=== PATIENT | female | born 1950 | race Caucasian/White ===

== ENCOUNTER 2017-12-02 10:03 | Outpatient (CLI) | payer MEDICARE | END 2017-12-02 23:59 | disposition home or self-care (01) | LOC: RT 10:03 | PROVIDERS: ATTEND Internal Medicine Critical Care Medicine | DX: J44.9 Chronic obstructive pulmonary disease, unspecified (principal); Z87.891 Personal history of nicotine dependence | CPT/HCPCS: 94618 ==

== ENCOUNTER 2022-05-28 09:40 | Emergency (ER) | payer MEDICARE, BC ==
[~2022-05-28 09:40] MED LIST: ALBU18HF2 PO; ALPR-143 PO; ASPI-1265 NG; DRON2.5C18 PO; FAMO20TA8 PO; FLUT1BLS4 PO; LOSA50TA64 PO; MONT-40 PO; ONDA8TAB6 PO; TIOT4MIS3 PO
[2022-05-28] MEDS ORDERED: DOXY100C76 PO (18:31)
[2022-05-28] MEDS ORDERED: PRED10TA PO (18:31)
[2022-05-28] MEDS ORDERED: CEPH250T PO (18:31)
== END 2022-05-28 11:14 | disposition left against medical advice (07) ==
LOC: ER 09:41
DX: J44.9 Chronic obstructive pulmonary disease, unspecified (principal); Z53.21 Procedure and treatment not carried out due to patient leaving prior to being seen by health care provider

== ENCOUNTER 2022-05-28 12:39 | Emergency (ER) | payer MEDICARE, BC, OTHER ==
[~2022-05-28] VITALS: Ht 162.6 cm; Wt 48.6 kg
[~2022-05-28 12:39] MED LIST changes: +ALBU18HF2 INH; -ALBU18HF2 PO
[2022-05-28] MEDS ORDERED: acetaminophen 325mg tablet PO STA (13:47)
[2022-05-28] MEDS ORDERED: ipratropium/albuterol 3ml nebule NEB ONE (13:50)
[2022-05-28] MEDS ORDERED: methylPREDNISolone sod succ 125mg/2ml vial IV ONE (13:50)
[2022-05-28] MEDS ORDERED: normal saline 1000ML IV soln IV ONE (13:50)
[2022-05-28 14:09] LABS: BASOPHILS # (AUTO) 0.1 X10'3 (0-0.2); BASOPHILS % (AUTO) 0.4 % (0-1); EOSINOPHILS % (AUTO) 0.2 % (0-6); HEMATOCRIT 33.8 % (35.0-45.0); LYMPHOCYTES # (AUTO) 0.7 X10'3 (1.1-4.8); LYMPHOCYTES % (AUTO) 4.8 % (21-51); MEAN CORPUSCULAR HGB CONC 32.5 g/dL (33.0-36.5); MEAN CORPUSCULAR VOLUME 89.1 FL (78-98); MONOCYTES # (AUTO) 1.6 X10'3 (0-0.9); MONOCYTES % (AUTO) 10.7 % (2-12); NEUTROPHILS # (AUTO) 12.2 X10'3 (1.8-7.7); NEUTROPHILS % (AUTO) 83.9 % (42-75); PLATELET COUNT 319 X10'3 (140-440); RED CELL DISTRIBUTION WIDTH 13.6 % (11.5-14.5); WHITE BLOOD COUNT 14.6 X10'3 (4.5-11.0)
[2022-05-28 14:24] LABS: ALANINE AMINOTRANSFERASE 27 U/L (12-78); ALBUMIN 2.2 G/DL (3.4-5.0); ALBUMIN/GLOBULIN RATIO 0.5 (1.1-1.5); ALKALINE PHOSPHATASE 162 IU/L (46-116); ANION GAP 6 (8-16); ASPARTATE AMINO TRANSFERASE 37 U/L (10-37); BILIRUBIN,TOTAL 0.6 MG/DL (0.1-1.0); BLOOD UREA NITROGEN 14 MG/DL (7-18); BUN/CREATININE RATIO 17.3 (6.6-38.0); CALCIUM 8.7 MG/DL (8.5-10.1); CHLORIDE 94 MMOL/L (99-107); CREATININE 0.81 MG/DL (0.40-0.90); GLUCOSE 120 MG/DL (70-104); POTASSIUM 3.5 MMOL/L (3.5-5.1); SODIUM 131 MMOL/L (135-145); TOTAL CARBON DIOXIDE 31.1 MMOL/L (24-32); TOTAL PROTEIN 6.9 G/DL (6.4-8.2); eGFR 70 ML/MIN
[2022-05-28] MEDS ORDERED: magnesium 2GM in 50ml NS 50 ML IV ONE (16:30)
[2022-05-28] MEDS ORDERED: azithromycin/NS 500mg/250ml 250 ML IV ONE (17:45)
[2022-05-28] MEDS ORDERED: CefTRIAXone 2gm/D5W 50ml BAG 50 ML IV ONE (17:45)
[2022-05-28] MEDS ORDERED: CEPH250T PO ×2 (18:31)
[2022-05-28] MEDS ORDERED: DOXY100C76 PO ×2 (18:31)
[2022-05-28] MEDS ORDERED: PRED10TA PO ×2 (18:31)
[2022-05-28 21:10] VITALS: BP 101/53
[2022-06-06] MEDS ORDERED: ASPI-611 PO (13:25)
[2022-06-06] MEDS ORDERED: FLUT1BLS4 IH (13:31)
[2022-06-06] MEDS ORDERED: DOXY-457 PO (13:44)
[2022-06-06] MEDS ORDERED: CEPH250C PO (13:44)
== END 2022-05-28 21:15 | disposition home or self-care (01) ==
LOC: ER 12:39
DX: J18.9 Pneumonia, unspecified organism (principal); Z20.822 Contact with and (suspected) exposure to COVID-19; J44.1 Chronic obstructive pulmonary disease with (acute) exacerbation; J96.20 Acute and chronic respiratory failure, unspecified whether with hypoxia or hypercapnia; Z79.899 Other long term (current) drug therapy; Z79.82 Long term (current) use of aspirin
CPT/HCPCS: 36415; 71045; 80053; 83605; 84145; 85025; 87040; 87502; 87503; 87635; 93005; 94640; 96365; 96366; 96367; 96375; 99285; C9803; J0456; J0696; J2930; J3475; J7030; 94760

== ENCOUNTER 2022-06-23 23:45 | Emergency (ER) | payer MEDICARE, BC ==
[~2022-06-23] VITALS: Ht 162.6 cm; Wt 49.1 kg
[~2022-06-23 23:45] MED LIST changes: -ALPR-143 PO; -ASPI-1265 NG; +ASPI-611 PO; -DRON2.5C18 PO; -FAMO20TA8 PO; +FLUT1BLS4 IH; -FLUT1BLS4 PO; +LEVO750T68 PO; -MONT-40 PO; -ONDA8TAB6 PO; +PRED10TA23 PO; -TIOT4MIS3 PO
[2022-06-24 03:07] LABS: BASOPHILS % (AUTO) 0.3 % (0-1); EOSINOPHILS % (AUTO) 0.4 % (0-6); HEMATOCRIT 30.8 % (35.0-45.0); HEMOGLOBIN 10.4 g/dl (12.0-16.0); LYMPHOCYTES # (AUTO) 0.7 X10'3 (1.1-4.8); LYMPHOCYTES % (AUTO) 10.9 % (21-51); MEAN CORPUSCULAR HEMOGLOBIN 29.2 PG (27.0-31.0); MEAN CORPUSCULAR HGB CONC 33.7 g/dL (33.0-36.5); MEAN CORPUSCULAR VOLUME 86.5 FL (78-98); MEAN PLATELET VOLUME 6.8 FL (7.4-10.4); MONOCYTES # (AUTO) 0.3 X10'3 (0-0.9); MONOCYTES % (AUTO) 4.6 % (2-12); NEUTROPHILS # (AUTO) 5.7 X10'3 (1.8-7.7); NEUTROPHILS % (AUTO) 83.8 % (42-75); PLATELET COUNT 285 X10'3 (140-440); RED BLOOD COUNT 3.56 X10'6 (4.20-5.60); RED CELL DISTRIBUTION WIDTH 15.1 % (11.5-14.5); WHITE BLOOD COUNT 6.8 X10'3 (4.5-11.0)
[2022-06-24 03:19] LABS: ALANINE AMINOTRANSFERASE 27 U/L (12-78); ALBUMIN 2.1 G/DL (3.4-5.0); ALBUMIN/GLOBULIN RATIO 0.5 (1.1-1.5); ALKALINE PHOSPHATASE 73 IU/L (46-116); ANION GAP 5 (8-16); ASPARTATE AMINO TRANSFERASE 33 U/L (10-37); BILIRUBIN,TOTAL 0.3 MG/DL (0.1-1.0); BLOOD UREA NITROGEN 12 MG/DL (7-18); BUN/CREATININE RATIO 17.6 (6.6-38.0); CALCIUM 8.3 MG/DL (8.5-10.1); CHLORIDE 94 MMOL/L (99-107); CREATININE 0.68 MG/DL (0.40-0.90); GLUCOSE 80 MG/DL (70-104); POTASSIUM 3.8 MMOL/L (3.5-5.1); SODIUM 132 MMOL/L (135-145); TOTAL CARBON DIOXIDE 33.2 MMOL/L (24-32); TOTAL PROTEIN 6.3 G/DL (6.4-8.2); eGFR 85 ML/MIN
[2022-06-24] MEDS ORDERED: iohexol 350MG/ML 100ml bottle IV ONE (05:04)
[2022-06-24 09:04] VITALS: BP 132/66
== END 2022-06-24 09:05 | disposition home or self-care (01) ==
LOC: ER 23:45
DX: R04.2 Hemoptysis (principal); J44.9 Chronic obstructive pulmonary disease, unspecified
CPT/HCPCS: 36415; 71045; 71275; 80053; 83880; 85025; 85610; 87040; 99285; J3490; Q9967

== ENCOUNTER 2022-07-04 19:03 | Emergency (ER) | payer MEDICARE, BC ==
[~2022-07-04] VITALS: Ht 162.6 cm; Wt 50.0 kg
[2022-07-04] MEDS ORDERED: methylPREDNISolone sod succ 125mg/2ml vial IV ONE (19:15)
[2022-07-04] MEDS ORDERED: ipratropium/albuterol 3ml nebule NEB ONE (19:15)
[2022-07-04 19:48] LABS: BASOPHILS % (AUTO) 0.3 % (0-1); EOSINOPHILS # (AUTO) 0.1 X10'3 (0-0.9); EOSINOPHILS % (AUTO) 1.2 % (0-6); HEMATOCRIT 29.5 % (35.0-45.0); LYMPHOCYTES # (AUTO) 1.7 X10'3 (1.1-4.8); LYMPHOCYTES % (AUTO) 18.1 % (21-51); MEAN CORPUSCULAR HEMOGLOBIN 28.9 PG (27.0-31.0); MEAN CORPUSCULAR HGB CONC 33.8 g/dL (33.0-36.5); MEAN CORPUSCULAR VOLUME 85.6 FL (78-98); MEAN PLATELET VOLUME 6.6 FL (7.4-10.4); MONOCYTES # (AUTO) 0.9 X10'3 (0-0.9); MONOCYTES % (AUTO) 9.9 % (2-12); NEUTROPHILS # (AUTO) 6.7 X10'3 (1.8-7.7); NEUTROPHILS % (AUTO) 70.5 % (42-75); PLATELET COUNT 460 X10'3 (140-440); RED BLOOD COUNT 3.45 X10'6 (4.20-5.60); WHITE BLOOD COUNT 9.6 X10'3 (4.5-11.0)
[2022-07-04 20:15] LABS: ALANINE AMINOTRANSFERASE 36 U/L (12-78); ALBUMIN 2.1 G/DL (3.4-5.0); ALBUMIN/GLOBULIN RATIO 0.4 (1.1-1.5); ALKALINE PHOSPHATASE 85 IU/L (46-116); ANION GAP 5 (8-16); ASPARTATE AMINO TRANSFERASE 27 U/L (10-37); BILIRUBIN,TOTAL 0.5 MG/DL (0.1-1.0); BLOOD UREA NITROGEN 11 MG/DL (7-18); BUN/CREATININE RATIO 15.5 (6.6-38.0); CALCIUM 8.7 MG/DL (8.5-10.1); CHLORIDE 90 MMOL/L (99-107); CREATININE 0.71 MG/DL (0.40-0.90); GLUCOSE 92 MG/DL (70-104); MAGNESIUM 1.8 MG/DL (1.5-2.4); POTASSIUM 3.9 MMOL/L (3.5-5.1); SODIUM 127 MMOL/L (135-145); TOTAL CARBON DIOXIDE 31.6 MMOL/L (24-32); TOTAL PROTEIN 6.9 G/DL (6.4-8.2); eGFR 81 ML/MIN
[2022-07-04] MEDS ORDERED: PRED20TA PO (20:33)
[2022-07-04] MEDS ORDERED: CefTRIAXone 2gm/D5W 50ml BAG 50 ML IV ONE (20:35)
[2022-07-04 21:57] VITALS: BP 107/56
== END 2022-07-04 22:00 | disposition home or self-care (01) ==
LOC: ER 19:03
DX: J40 Bronchitis, not specified as acute or chronic (principal); Z79.899 Other long term (current) drug therapy; Z79.82 Long term (current) use of aspirin
CPT/HCPCS: 36415; 71045; 80053; 83605; 83735; 84145; 84484; 85025; 87040; 93005; 94640; 96365; 96375; 99285; J0696; J2930; 94760

== ENCOUNTER 2022-12-05 12:29 | Emergency (ER) | payer MEDICARE, BC ==
[~2022-12-05] VITALS: Ht 162.6 cm; Wt 52.3 kg
[~2022-12-05 12:29] MED LIST changes: -PRED10TA23 PO
[2022-12-05 13:26] LABS: BASOPHILS % (AUTO) 0.4 % (0-1); HEMATOCRIT 41.2 % (35.0-45.0); LYMPHOCYTES # (AUTO) 1.2 X10'3 (1.1-4.8); RED CELL DISTRIBUTION WIDTH 16.7 % (11.5-14.5)
[2022-12-05 13:27] LABS: EOSINOPHILS # (AUTO) 0.1 X10'3 (0-0.9); EOSINOPHILS % (AUTO) 0.7 % (0-6); HEMOGLOBIN 13.4 g/dl (12.0-16.0); LYMPHOCYTES % (AUTO) 13.5 % (21-51); MEAN CORPUSCULAR HEMOGLOBIN 26.5 PG (27.0-31.0); MEAN CORPUSCULAR HGB CONC 32.5 g/dL (33.0-36.5); MEAN CORPUSCULAR VOLUME 81.4 FL (78-98); MEAN PLATELET VOLUME 6.8 FL (7.4-10.4); MONOCYTES # (AUTO) 0.7 X10'3 (0-0.9); MONOCYTES % (AUTO) 8.1 % (2-12); NEUTROPHILS # (AUTO) 6.8 X10'3 (1.8-7.7); NEUTROPHILS % (AUTO) 77.3 % (42-75); PLATELET COUNT 628 X10'3 (140-440); RED BLOOD COUNT 5.06 X10'6 (4.20-5.60); WHITE BLOOD COUNT 8.8 X10'3 (4.5-11.0)
[2022-12-05 13:37] LABS: ALANINE AMINOTRANSFERASE 12 U/L (12-78); ALBUMIN 3.1 G/DL (3.4-5.0); ALBUMIN/GLOBULIN RATIO 0.7 (1.1-1.5); ALKALINE PHOSPHATASE 98 IU/L (46-116); ANION GAP 6 (8-16); ASPARTATE AMINO TRANSFERASE 16 U/L (10-37); BILIRUBIN,TOTAL 0.4 MG/DL (0.1-1.0); BLOOD UREA NITROGEN 23 MG/DL (7-18); BUN/CREATININE RATIO 18.5 (10.0-20.0); CALCIUM 9.4 MG/DL (8.5-10.1); CHLORIDE 94 MMOL/L (99-107); CREATININE 1.24 MG/DL (0.40-0.90); GLUCOSE 121 MG/DL (70-104); LIPASE 103 U/L (73-393); SODIUM 133 MMOL/L (135-145); TOTAL CARBON DIOXIDE 32.7 MMOL/L (24-32); TOTAL PROTEIN 7.4 G/DL (6.4-8.2); eGFR 42 ML/MIN
[2022-12-05 13:52] VITALS: BP 116/68
[2022-12-05 14:31] LABS: TOTAL CELLS COUNTED 100
[2022-12-05 14:32] LABS: ANISOCYTOSIS 1+; PLATELET ESTIMATE INCREASED
[2022-12-05 14:33] LABS: ELLIPTOCYTES FEW; SCHISTOCYTES FEW
[2022-12-05] MEDS ORDERED: mag hydrox/Alum hydrox/simeth 30ml oral suspension PO ONE (16:05)
[2022-12-05] MEDS ORDERED: LIDOcaine Viscous 15ml cup MM PRN (16:05)
[2022-12-05] MEDS ORDERED: ondansetron 4mg rapidly disintigrating tab PO ONE (16:10)
[2022-12-05] MEDS ORDERED: HYDR-3965 PO (20:20)
[2022-12-06] MEDS ORDERED: MONT-40 PO (12:49)
== END 2022-12-05 20:29 | disposition home or self-care (01) ==
LOC: ER 12:30
DX: R10.13 Epigastric pain (principal)
CPT/HCPCS: 36415; 76700; 80053; 83690; 85007; 85025; 99284

== ENCOUNTER 2023-05-14 12:22 | Emergency (ER) | payer MEDICARE, BC ==
[~2023-05-14] VITALS: Ht 162.6 cm; Wt 52.2 kg
[~2023-05-14 12:22] MED LIST changes: -LEVO750T68 PO; +MONT-40 PO
[2023-05-14 12:52] VITALS: TEMP 97.6
[2023-05-14 14:14] LABS: BASOPHILS # (AUTO) 0.1 X10'3 (0-0.2); BASOPHILS % (AUTO) 0.7 % (0-1); EOSINOPHILS # (AUTO) 0.3 X10'3 (0-0.9); EOSINOPHILS % (AUTO) 3.6 % (0-6); HEMATOCRIT 35.8 % (35.0-45.0); HEMOGLOBIN 11.9 g/dl (12.0-16.0); LYMPHOCYTES # (AUTO) 1.3 X10'3 (1.1-4.8); LYMPHOCYTES % (AUTO) 14.2 % (21-51); MEAN CORPUSCULAR HEMOGLOBIN 26.4 PG (27.0-31.0); MEAN CORPUSCULAR HGB CONC 33.1 g/dL (33.0-36.5); MEAN CORPUSCULAR VOLUME 79.8 FL (78-98); MEAN PLATELET VOLUME 6.9 FL (7.4-10.4); MONOCYTES # (AUTO) 0.6 X10'3 (0-0.9); MONOCYTES % (AUTO) 7.2 % (2-12); NEUTROPHILS # (AUTO) 6.7 X10'3 (1.8-7.7); NEUTROPHILS % (AUTO) 74.3 % (42-75); PLATELET COUNT 458 X10'3 (140-440); RED BLOOD COUNT 4.49 X10'6 (4.20-5.60); RED CELL DISTRIBUTION WIDTH 16.4 % (11.5-14.5); WHITE BLOOD COUNT 9.1 X10'3 (4.5-11.0)
[2023-05-14 14:30] LABS: ALANINE AMINOTRANSFERASE 7 U/L (12-78); ALBUMIN/GLOBULIN RATIO 0.6 (1.1-1.5); ALKALINE PHOSPHATASE 93 IU/L (46-116); ANION GAP 4 (8-16); ASPARTATE AMINO TRANSFERASE 14 U/L (10-37); BILIRUBIN,TOTAL 0.4 MG/DL (0.1-1.0); BLOOD UREA NITROGEN 10 MG/DL (7-18); BUN/CREATININE RATIO 13.2 (10.0-20.0); CALCIUM 9.4 MG/DL (8.5-10.1); CHLORIDE 98 MMOL/L (99-107); CREATININE 0.76 MG/DL (0.40-0.90); GLUCOSE 119 MG/DL (70-104); POTASSIUM 4.1 MMOL/L (3.5-5.1); SODIUM 134 MMOL/L (135-145); TOTAL CARBON DIOXIDE 32.2 MMOL/L (24-32); TOTAL PROTEIN 8.2 G/DL (6.4-8.2); eCRCL 54 ML/MIN; eGFR 75 ML/MIN
[2023-05-14 14:36] LABS: PRO BRAIN NATRIURETIC PEPTIDE 127 PG/ML (0-125)
[2023-05-14 14:48] VITALS: BP 148/82; PULSE 98; RESP 16; O2SAT 97
== END 2023-05-14 17:33 | disposition home or self-care (01) ==
LOC: ER 12:23
DX: J45.901 Unspecified asthma with (acute) exacerbation (principal); Z79.899 Other long term (current) drug therapy
CPT/HCPCS: 36415; 71045; 80053; 83880; 85025; 99284

== ENCOUNTER 2024-12-09 11:20 | Inpatient (IN) | payer MEDICARE, BC ==
[~2024-12-09] VITALS: Ht 162.6 cm; Wt 57.3 kg
--- NOTE | 2024-12-09 11:37 | ELECTROCARDIOGRAPH REPORT ---
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 Rashard Phelan Measurements Intervals [place] Rate: 97 P: 89 IN: 142 QRS: 80 QRSD: 86 T: 78 QT: 344 QTc: 437 Interpretive Statements Sinus rhythm Right atrial enlargement Minimal ST depression, lateral leads Electronically Signed On 12-12-2024 13:43:[address] Rashard Phelan Please click the below link to view image of tracing.
--- NOTE | 2024-12-09 11:56 | RADIOLOGY REPORT ---
DI CHEST,TWO VIEWS INDICATION: cough TECHNIQUE: Two views of the chest COMPARISON: None FINDINGS/IMPRESSION: LUNGS: Small left pleural effusion. Bullous emphysematous change in the right lung apex. MEDIASTINUM: Unremarkable BONES: No acute osseous abnormality OTHER: None
--- NOTE | 2024-12-09 14:08 | Physician Documentation ---
History of Present Illness ~ Chief Complaint: Cough Stated Complaint: SOB Time Seen by MD: 13:50 Primary Medical Doctor: [facility] Source: patient, family HPI 74-year-old female history of COPD on 1 L nasal cannula as needed presenting for 2 months of persistent cough and shortness of breath. She initially was seen by primary care and started on antibiotics. She had some improvement and then had return of her cough. Over the last several weeks she has had increasing produc tive cough and shortness of breath with fatigue. She underwent a 2nd round of antibiotics with no improvement. She was seen again today at urgent care and received nebulized budesonide with no improvement. She reports pain with cough on the left side of her chest. Also worsened with deep breath Medication Reconciliation Allergies: Coded Allergies: No Known Allergies (Unverified , 06/06/22) Scheduled Aspirin (Aspir 81), 1 TAB PO DAILY, (Reported) Fluticasone/Umeclidin/Vilanter (Trelegy Ellipta 100-62.5-25), 1 PUFF IH DAILY, (Reported) Losartan Potassium (Losartan Potassium), 1 TAB PO DAILY, (Reported) Montelukast Sodium (Montelukast Sodium), 1 TAB PO QPM, (Reported) Scheduled PRN Albuterol Sulfate (Ventolin Hfa), 1 PUFF INH BID PRN for SOB or wheezing, (Reported) Past Medical History Past Medical History: COPD, Pneumonia Past Surgical History: no surgical history Patient History: Patient reports no known family medical history. Alcohol Use: None Drug Use: none Lives with: Spouse Lives In: Home Review of Systems All Other Systems at this time: Reviewed and Negative Constitutional: Denies: fever Physical Exam Vital Signs: Temperature: 98.2, Source: Oral, Heart Rate: 94, Respiratory Rate: 19, BP: 124/64, Pulse Oximetry: 98, Weight: 57.270 Oxygen Flow Rate: 2.0 Progress Progress Note Consulted hospitalist Service who agree with management plan and graciously accept for admission Results/Orders Reviewed/noted all lab results: Yes Results/Orders Orders - PILAR ANDERSON MD Chest,Two Views (12/09/24 11:28) Cta Chest Pe (12/09/24 ) Culture Blood (12/09/24 14:31) Covid19 Binax Poc Result Entry (12/09/24 14:31) Page Hospitalist (12/09/24 16:48) Fill Out Med Reconciliation (12/09/24 16:48) Completed Orders - PILAR ANDERSON MD Chest,Two Views (12/09/24 11:28) Electrocardiogram (12/09/24 11:28) Cbc/Diff (12/09/24 14:12) BMP (12/09/24 14:12) PBNP (12/09/24 14:12) Hs Troponin I W Calculations (12/09/24 14:12) Cta Chest Pe (12/09/24 ) Lacticsepsis (12/09/24 14:31) Iohexol 350mg/Ml 100ml (Omnipaque 350mg/ (12/09/24 15:16) Morphine 4mg/Ml Inj. (Morphine Inj.) (12/09/24 16:35) Ceftriaxone 2gm/D5w 50ml Bag (Rocephin 2 (12/09/24 16:50) Azithromycin Tablet (Zithromax Tablet) (12/09/24 16:50) Ipratropium/Albuterol Nebule (Ipratrop/A (12/09/24 17:00) Medications Received in ER Medications (Trade) Dose Ordered Sig/Elaine Route PRN Reason Start Time Stop Time Status Last Admin Dose Admin (morphine inj.) 4 mg ONCE ONCE IV 12/09/24 16:35 12/09/24 16:36 DC 12/09/24 16:40 4 MG Ceftriaxone Sodium/Dextrose 50 ml @ 100 mls/hr ONCE ONCE IV 12/09/24 16:50 12/09/24 17:19 DC 12/09/24 17:04 100 MLS/HR (Zithromax tablet) 500 mg ONCE ONCE PO 12/09/24 16:50 12/09/24 16:52 DC 12/09/24 17:04 500 MG (ipratrop/ albuterol 0.5-3(2.5) MG/3ml nebule) 3 ml ONCE ONCE NEB 12/09/24 17:00 12/09/24 17:01 DC 12/09/24 17:34 3 ML Vital Signs 12/09/24 12/09/24 12/09/24 12/09/24 11:30 12:43 13:15 14:08 Temp 98.4 98.2 Pulse 100 94 84 Resp 20 19 27 B/P (MAP) 150/73 124/64 (84) 118/58 (78) Pulse Ox 97 98 99 O2 Flow Rate 2.0 2.0 12/09/24 16:40 Resp 15 Laboratory Tests Test 12/09/24 14:32 12/09/24 16:28 White Blood Count 9.8 Red Blood Count 4.23 Hemoglobin 12.4 Hematocrit 36.8 Mean Corpuscular Volume 87.0 Mean Corpuscular Hemoglobin 29.4 Mean Corpuscular Hemoglobin Concent 33.8 Red Cell Distribution Width 14.4 Platelet Count 301 Mean Platelet Volume 7.4 Neutrophils (%) (Auto) 74.6 Lymphocytes (%) (Auto) 14.1 L Monocytes (%) (Auto) 9.8 Eosinophils (%) (Auto) 1.0 Basophils (%) (Auto) 0.5 Neutrophils # (Auto) 7.3 Lymphocytes # (Auto) 1.4 Monocytes # (Auto) 1.0 H Eosinophils # (Auto) 0.1 Basophils # (Auto) 0.1 CBC Comment Sodium Level 138 Potassium Level 3.7 Chloride Level 100 Carbon Dioxide Level 31.2 Anion Gap 7 L Blood Urea Nitrogen 13 Creatinine 0.81 Estimated GFR/1.73 m2 69 BUN/Creatinine Ratio 16.0 Glucose Level 87 Lactic Acid Level 1.1 Calcium Level 8.9 Troponin I High Sensitivity 11 Pro-B-Type Natriuretic Peptide 265 Albumin 3.1 L Chemistry Comments SARS-CoV-2 Antigen (Rapid) Negative Microbiology Date/Time Source Procedure Growth Status 12/09/24 14:40 Blood Arm Left Blood Culture - Preliminary NEGATIVE (LESS THAN 24 HOURS) Resulted EKG/XRAY/CT/US/VASC/MRI EKG : Additional Comment EKG independently interpreted by myself time 11:34 a.m. indication shortness of breath normal sinus rhythm rate 97 normal axis normal intervals lateral ST depression CT : Impression CT chest independently interpreted by myself shows no pulmonary embolism, trace left pleural effusion Medical Decision Making Additional info obtained from: old records Findings Reviewed discharge summary November 2022 small-bowel obstruction Differential Diagnosis Pneumonia COPD CHF Departure Disposition: ADMITTED INPATIENT Admitted to Inpatient Unit: to hospitalist Impression: Primary Impression: Pneumonia Qualified Codes: J18.9 - Pneumonia, unspecified organism Referrals: NO PRIMARY CARE PROVIDER (PCP) Signature Scribe Signature: No scribe Attestation: No scribe PILAR ANDERSON MD December 09, 2024 14:08
[2024-12-09 14:52] LABS: BASOPHILS # (AUTO) 0.1 X10'3 (0-0.2); BASOPHILS % (AUTO) 0.5 % (0-1); EOSINOPHILS # (AUTO) 0.1 X10'3 (0-0.9); HEMATOCRIT 36.8 % (35.0-45.0); HEMOGLOBIN 12.4 g/dl (12.0-16.0); LYMPHOCYTES # (AUTO) 1.4 X10'3 (1.1-4.8); LYMPHOCYTES % (AUTO) 14.1 % (21-51); MEAN CORPUSCULAR HEMOGLOBIN 29.4 PG (27.0-31.0); MEAN CORPUSCULAR HGB CONC 33.8 g/dL (33.0-36.5); MEAN PLATELET VOLUME 7.4 FL (7.4-10.4); MONOCYTES % (AUTO) 9.8 % (2-12); NEUTROPHILS # (AUTO) 7.3 X10'3 (1.8-7.7); NEUTROPHILS % (AUTO) 74.6 % (42-75); PLATELET COUNT 301 X10'3 (140-440); RED BLOOD COUNT 4.23 X10'6 (4.20-5.60); RED CELL DISTRIBUTION WIDTH 14.4 % (11.5-14.5); WHITE BLOOD COUNT 9.8 X10'3 (4.5-11.0)
[2024-12-09 15:11] LABS: ALBUMIN 3.1 G/DL (3.4-5.0); ANION GAP 7 (8-16); BLOOD UREA NITROGEN 13 MG/DL (7-18); CALCIUM 8.9 MG/DL (8.5-10.1); CHLORIDE 100 MMOL/L (99-107); CREATININE 0.81 MG/DL (0.40-0.90); GLUCOSE 87 MG/DL (70-104); POTASSIUM 3.7 MMOL/L (3.5-5.1); PRO BRAIN NATRIURETIC PEPTIDE 265 PG/ML (0-450); SODIUM 138 MMOL/L (135-145); TOTAL CARBON DIOXIDE 31.2 MMOL/L (24-32); eCRCL 52 ML/MIN; eGFR 69 ML/MIN
[2024-12-09] MEDS ORDERED: iohexol 350MG/ML 100ml bottle IV ONE (15:16)
[2024-12-09] MEDS: morphine 4 MG/ML inj SYRINge IV ONE (16:40)
--- NOTE | 2024-12-09 16:41 | RADIOLOGY REPORT ---
EXAM: CT CTA CHEST PE W/ IV CONTRAST HISTORY: chest pain, effusion TECHNIQUE: CT angiogram was performed. Sagittal and coronal reformatted images as well as maximum int ensity projection images and 3D volume renderings were generated and evaluated. All CT scans at this facility use dose modulation, iterative reconstruction, and/or weight based dosing when appropriate t o reduce radiation dose to as low as reasonably achievable. Coronal and sagittal reformations and max imum intensity projection images were created from the transaxial source data by the health information technologist and workstation, as well as 3-D volume rendered images with MIPs. COMPARISON: CTA CHEST on DOS: 06/24/22 FINDINGS: [LOWER NECK]: Unremarkable [LYMPH NODES/MEDIASTINUM]: No abnormal lymph nodes by CT size criteria [CARDIOVASCULAR]: Normal cardiac size. No pericardial effusion. No aneurysmal dilatation of the great vessels. Coronary artery calcifications. [PULMONARY ARTERIES]: No pulmonary arterial filling defect. Normal caliber of the main pulmonary hamzah ry. No evidence of elevated right heart pressures. [UPPER ABDOMEN]: Hypoattenuating lesion in hepatic segment 4 measuring 1.1 cm. Layering cholelithiasi s. [MUSCULOSKELETAL]: No acute fracture or aggressive focal osseous lesion. Multilevel degenerative owusu ge of the visualized spine. [CHEST WALL]: Unremarkable. [LUNG PARENCHYMA/PLEURAL SPACE]: Severe centrilobular emphysema. Bullous emphysema in the right lung apex. Area of peripheral suspected consolidation of the subpleural space in the left lower lobe with the associated cystic lung change. Oval-shaped pulmonary nodule of the inferior lingula measuring 4 mm. Trace right lower lobe peribronchial thickening without mucoid impaction. Suspected COPD. IMPRESSION: 1. No CTA evidence of an acute pulmonary embolism. Suspected consolidation of the periphery of the le ft lower lobe primarily along the subpleural space and/or superimposed atelectasis.COPD with tracheal 2. Secretions and severe centrilobular emphysema.
[2024-12-09] MEDS ORDERED: potassium Cl 20 mEq SR tablet PO PRN ×2 (17:00)
[2024-12-09] MEDS ORDERED: magnesium sulf-water 4G/100mL 100 ML IV PRN (17:00)
[2024-12-09] MEDS ORDERED: ondansetron/PF 4mg/2ml inj IV PRN (17:00)
[2024-12-09] MEDS ORDERED: magnesium sulf-water 2g/50mL 50 ML IV PRN (17:00)
[2024-12-09] MEDS ORDERED: magnesium Cl slow-release 64mg tablet PO PRN (17:00)
[2024-12-09] MEDS ORDERED: potassium Cl 40MEQ/1/2NS 520ml 520 ML IV PRN (17:00)
[2024-12-09] MEDS ORDERED: acetaminophen 325mg tablet PO PRN ×2 (17:00)
[2024-12-09] MEDS ORDERED: morphine 2 MG/ML inj. syringe IV PRN (17:00)
[2024-12-09] MEDS: CefTRIAXone 2gm/D5W 50ml BAG 50 ML IV ONE (17:04)
[2024-12-09] MEDS: azithromycin 250mg tablet PO ONE (17:04)
[2024-12-09] MEDS ORDERED: albuterol 2.5 MG/3 ML nebule NEB PRN (17:05)
[2024-12-09 17:34] VITALS: PULSE 95; RESP 20; O2SAT 97
[2024-12-09] MEDS: ipratropium/albuterol 3ml nebule NEB ONE (17:34)
--- NOTE | 2024-12-09 17:38 | HISTORY AND PHYSICAL-Residence ---
History & Physical Providers to CC Resident Creating Document: GARLAND LAWRENCE RES ~ History of Present Illness Primary Medical Doctor: [facility] medical Reason for Admit\Complaint: Shortness of breath History of Present Illness This is a 74-year-old female patient with a past medical history of COPD on home oxygen of 1-2 L presents to the hospital complaints of worsening shortness of breath and productive cough over the last 1-1/2 months. She was seen outside at [facility] were a chest x-ray revealed no acute abnormalities and she was treated for acute bronchitis twice with both Zithromax and amoxicillin, she noticed improvement in symptoms following the antibiotic therapy but they soon returned. When she went in to [facility], they also prescribed her budesonide nebulization which apparently worsened the patient's symptoms and resulted in pain with every deep breath since. Patient uses as needed albuterol nebulization and Trelegy inhaler every day. Otherwise, she has no change in activity level and has not required increasing oxygen demand. Denies any chills, fevers, recent sick contacts, URTI symptoms. She has been on losartan chronically. Quit smoking 7-8 years ago. Nobody else in the house has been sick. Follows up with a licensed marriage and family therapist in [place]- Dr. Luigi Restrepo Allergies: Coded Allergies: No Known Allergies (Unverified , 06/06/22) Home Medications Home Medications Active Reported Montelukast Sodium 10 Mg Tablet 1 Tab PO QPM Trelegy Ellipta 100-62.5-25 (Fluticasone/Umeclidin/Vilanter) 1 Each Blst.w.dev 1 Puff IH DAILY patient gets this med from [facility] due to cost Aspir 81 (Aspirin) 81 Mg Tablet.dr 1 Tab PO DAILY 30 Days Losartan Potassium 50 Mg Tablet 1 Tab PO DAILY Ventolin Hfa (Albuterol Sulfate) 18 Gm Hfa.aer.ad 1 Puff INH BID PRN Past Medical History Past Medical History Allergies- uses montelukast COPD- on home oxygen of 1-2 L Past Surgical History Surgical History Comment None Family History Family History: Patient reports no known family medical history. Past Social History Social History Comment Used to smoke for 20 years, one pack of cigarettes per day. Quit 7-8 years ago Denies any alcohol abuse or lifetime history of illicit drug abuse Lives at home with ; lives in [place]. Ambulatory and independent Alcohol Use: None Drug Use: None Lives with: Spouse Lives In: Home ROS ROS As stated above in the HPI, otherwise all systems are reviewed and negative. Exam Vitals: Vital Signs Date Time Temp Pulse Resp B/P (MAP) Pulse Ox O2 Delivery O2 Flow Rate FiO2 12/09/24 16:40 15 12/09/24 14:08 84 118/58 (78) 99 12/09/24 12:43 98.2 2.0 General: General: Awake and Alert, no acute distress. HEENT: Conjunctiva pink, Sclera clear, Mucus Membranes moist. Resp: On nasal cannula. Diffuse coarse crepitations and diminished left-sided basilar breath sounds. Overall decreased air entry in bilateral lung flowers. Heart: Regular Rate and rhythm, normal S1 and S2 without murmur, rub or gallop. Abdomen: Soft and non tender no organomegaly Extremities: No cyanosis,clubbing or edema. Skin: Warm and Dry. Diagnostic Data Last Recorded Lab Results: 12/09/24 1432 12/09/24 1432 Advance Care Planning Advanced Care plannin - 30 Minutes Additional Plan 1. Left lower lobe pneumonia: Associated small pleural effusion Failed outpatient antibiotic therapy Chest x-ray reveals small left-sided pleural effusion with confirmation and CTA chest which identified a consolidation of the periphery of the left lower lobe along the subpleural space and superimposed atelectasis On 2l of oxygen; incentive spirometry and flutter valve IV Rocephin and IV Zithromax started today No other SIRS features identified on labs and hemodynamically stable 2. Acute on chronic progressive COPD: Likely secondary to to the pneumonia Bilateral severely diminished breath sounds Chest x-ray reveals large right bullous emphysema in the upper lobe CTA chest reveals severe centrilobular emphysema along with a bullous emphysema in the right lung apex. CTA chest also ruled out pulmonary embolism SARs CoV 2 negative EKG reveals right atrial enlargement- follow echocardiogram for both RVSP and tricuspid analysis Albuterol neb q.2 PRN, and q.4 scheduled. Solu-Medrol 60 mg b.i.d. PT eval and treat Continue tapering oxygen to maintain saturation between 88 and 92% 3. Hypertension: Restart home medication of losartan after medication reconciliation Lines: PIV Code status: Full code Garland Lawrence PGY2, Internal medicine resident Date of Service: December 09, 2024 Billing Provider: KENNETH JULIAN MD Common Visit Codes: [id number] INP/OBS CARE (HIGH) Secondary Visit Codes: [id number] CARE PLAN 30 MINUTES GARLAND LAWRENCE, PREMA December 09, 2024 17:38 KENNETH JULIAN MD December 09, 2024 18:56
[2024-12-09 17:45] VITALS: PULSE 100; RESP 20
[2024-12-09] MEDS: albuterol 2.5 MG/3 ML nebule NEB SCH (19:19)
[2024-12-09] MEDS: HYDROcodone/acetaminophen 5mg/325mg tablet PO PRN (20:05)
[2024-12-09] MEDS: heparin, porcine 5000 units/ml vial SQ SCH (20:05)
[2024-12-09] MEDS: methylPREDNISolone sod succ 125mg/2ml vial IV SCH (20:05)
[2024-12-09 22:36] VITALS: PULSE 68; RESP 18; O2SAT 98
[2024-12-09 22:43] VITALS: PULSE 65; RESP 16
[2024-12-10] VITALS (14 sets, daily range): BP systolic 154–168; BP diastolic 77–85; PULSE 61–102; RESP 13–24; TEMP 96.9–97.3; O2SAT 93–98
[2024-12-10 08:42] LABS: BASOPHILS % (AUTO) 0.1 % (0-1); EOSINOPHILS % (AUTO) 0 % (0-6); HEMATOCRIT 34.8 % (35.0-45.0); HEMOGLOBIN 11.5 g/dl (12.0-16.0); LYMPHOCYTES # (AUTO) 0.3 X10'3 (1.1-4.8); LYMPHOCYTES % (AUTO) 5.2 % (21-51); MEAN CORPUSCULAR HEMOGLOBIN 28.9 PG (27.0-31.0); MEAN CORPUSCULAR HGB CONC 32.9 g/dL (33.0-36.5); MEAN CORPUSCULAR VOLUME 87.8 FL (78-98); MEAN PLATELET VOLUME 7.9 FL (7.4-10.4); MONOCYTES # (AUTO) 0.1 X10'3 (0-0.9); MONOCYTES % (AUTO) 1.6 % (2-12); NEUTROPHILS % (AUTO) 93.1 % (42-75); PLATELET COUNT 291 X10'3 (140-440); RED BLOOD COUNT 3.97 X10'6 (4.20-5.60); RED CELL DISTRIBUTION WIDTH 14.6 % (11.5-14.5); WHITE BLOOD COUNT 6.5 X10'3 (4.5-11.0)
[2024-12-10 08:52] LABS: ALANINE AMINOTRANSFERASE 15 U/L (12-78); ALBUMIN 2.8 G/DL (3.4-5.0); ALBUMIN/GLOBULIN RATIO 0.6 (1.1-1.5); ALKALINE PHOSPHATASE 79 IU/L (46-116); ANION GAP 7 (8-16); ASPARTATE AMINO TRANSFERASE 13 U/L (10-37); BILIRUBIN,TOTAL 0.3 MG/DL (0.1-1.0); BLOOD UREA NITROGEN 18 MG/DL (7-18); BUN/CREATININE RATIO 18.2 (10.0-20.0); CALCIUM 9.3 MG/DL (8.5-10.1); CHLORIDE 102 MMOL/L (99-107); CREATININE 0.99 MG/DL (0.40-0.90); GLUCOSE 160 MG/DL (70-104); POTASSIUM 4.1 MMOL/L (3.5-5.1); SODIUM 140 MMOL/L (135-145); TOTAL CARBON DIOXIDE 31.2 MMOL/L (24-32); TOTAL PROTEIN 7.2 G/DL (6.4-8.2); eCRCL 42 ML/MIN; eGFR 55 ML/MIN
[2024-12-10] MEDS: CefTRIAXone 2gm/D5W 50ml BAG 50 ML IV SCH (09:36)
[2024-12-10] MEDS: azithromycin/NS 500mg/250ml 250 ML IV SCH (10:36)
--- NOTE | 2024-12-10 11:38 | PROGRESS NOTE- Residence ---
Progress Note - Resident Providers to CC Resident Creating Document: SAMISAACCHATOGARLAND, RES ~ Central Line/PICC still needed: No Price-Non Protocol Price Indications Met/Not Met: F/C Indications Not Met Antibiotic Timeout Antibiotic Ordered?: Yes Subjective Patient is doing well, no acute overnight events. She reports that she did not receive her tray last night and is slightly upset regarding that but otherwise no other acute medical complaints. Objective Vital Signs Date Time Temp Pulse Resp B/P (MAP) Pulse Ox O2 Delivery O2 Flow Rate FiO2 12/10/24 09:00 67 22 122/50 (74) 98 0 12/10/24 08:25 Nasal Cannula 12/10/24 08:16 28 12/09/24 12:43 98.2 Result Diagram: 12/10/2480712/10/24807 General: Awake and Alert, no acute distress. Resp: Unlabored. Bilateral diminished breath sounds with fine crepitations, diminished further in the left basilar lobe when compared to the right. Heart: Regular Rate and rhythm, normal S1 and S2 without murmur, rub or gallop. Abdomen: Soft and non tender no organomegaly Extremities: No cyanosis,clubbing or edema. Skin: Warm and Dry. Assessment Assessment This is a 74-year-old female patient with a past medical history of hypertension, advance COPD and allergies presented to the hospital with complaints of increasing shortness of breath over the last one month and a half. She failed outpatient antibiotic therapy twice. Although she had no change in her oxygen requirement or her activity level, the patient continued to have a productive cough more than usual with the associated fatigue. On imaging here, she was found to have a large right upper lobe bleb and left lower lobe pneumonia. She also has a advanced COPD on her imaging studies as well and follows up with a laborer cheesemaking- Dr. Esme owusu in [place]. She is currently being treated with IV antibiotic therapy and respiratory therapy for her pneumonia as well as her associated COPD exacerbation secondary to the pneumonia. She is on her baseline oxygen therapy of 1-2 L. Plan Plan 1. Left lower lobe pneumonia: Associated small pleural effusion Covered with broad-spectrum antibiotic therapy- Gram-positive and atypical Failed outpatient antibiotic therapy Chest x-ray reveals small left-sided pleural effusion with confirmation and CTA chest which identified a consolidation of the periphery of the left lower lobe along the subpleural space and superimposed atelectasis On 2l of oxygen; incentive spirometry and flutter valve IV Rocephin and IV Zithromax started today No other SIRS features identified on labs and hemodynamically stable 12/10/2024: Continue IV Rocephin Zithromax- day two Sputum culture ordered; Mucinex to increased expectoration Continue monitoring for increased oxygen demand 2. Acute on chronic COPD exacerbation: POA Likely secondary to to the pneumonia Underlying history of severe COPD Bilateral severely diminished breath sounds Chest x-ray reveals large right bullous emphysema in the upper lobe CTA chest reveals severe centrilobular emphysema along with a bullous emphysema in the right lung apex. CTA chest also ruled out pulmonary embolism SARs CoV 2-ve EKG reveals right atrial enlargement- follow echocardiogram for both RVSP and tricuspid analysis Albuterol neb q.2 PRN, and q.4 scheduled. Solu-Medrol 60 mg b.i.d. PT eval and treat Continue tapering oxygen to maintain saturation between 88 and 92% 12/10/2024: Ongoing productive cough- Mucinex 600 mg b.i.d. Continue RT eval and treat Flutter valve and IS q.1 hour when awake 3. Hypertension: Blood pressure well-controlled Restart home medication of losartan after medication reconciliation Disposition: If patient remained stable in terms of shortness of breath and oxygen requirements, plan for possible discharge tomorrow or on Saturday. Lines: PIV Code status: Full code Garland Lawrence PGY2, Internal medicine resident Date of Service: December 10, 2024 Billing Provider: KENNETH JULIAN MD Common Visit Codes: [id number] INP/OBS CARE(HIGH) GARLAND LAWRENCE, RES December 10, 2024 11:38 KENNETH JULIAN MD December 10, 2024 18:28
[2024-12-10] MEDS: guaiFENesin ER 600mg tablet PO SCH (12:05)
[2024-12-11] VITALS (11 sets, daily range): BP systolic 118–147; BP diastolic 52–74; PULSE 76–109; RESP 18–24; TEMP 96.8–97.3; O2SAT 91–97
--- NOTE | 2024-12-11 00:18 | CARDIOLOGY REPORT ---
APPROVED REPORT EXAM: Comprehensive 2D, Doppler, and color-flow Echocardiogram. 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 169.6 cm/s AoV VTI 34.9 cm AO Peak GR. 11.5 mmHg AO Mean GR. 5 mmHg LVOT VTI 27.71 cm LVOT Peak Rudy. 130.3 cm/s JENNIFER(VTI)/BSA 2.46 cm2/m2 JENNIFER (VTI) 2.46 cm2 Mitral Valve MV E Velocity 103.7 cm/s MV Peak Gr. 8 mmHg MV DECEL TIME 140 ms MV A Velocity 131.2 cm/s MV PHT 56 ms E/A Ratio 0.8 MVA (PHT) 3.93 cm2 MV OMev521.0 cm/s TDI Medial E' P. V 11.19 cm/s E/Medial E' 9.3 Tricuspid Valve TR P. Velocity 286 cm/s RAP ESTIMATE 10 mmHg TR Peak Gr. 33 mmHg RVSP 43 mmHg Pulmonary Vein S1 Velocity 37.6 cm/s D2 Velocity 29.8 cm/s PVa Rhofkgwx61.8 cm/s PVa [id number] msec LEFT VENTRICLE Normal LV size and wall thickness. Overall systolic function is hyperdynamic. LVEF is 75%. RIGHT VENTRICLE RV is normal size and function. RVSP is estimated at 43 mmHG. ATRIA The left atrium size is normal. AORTIC VALVE Trileaflet AV appears sclerotic without stenosis. No insufficiency. MITRAL VALVE MV is thickened with mild annular calcification and no stenosis. Trace mitral regurgitation. TRICUSPID VALVE The tricuspid valve is normal in structure. Mild tricuspid regurgitation. PULMONIC VALVE The pulmonary valve is normal in structure. Trace pulmonic regurgitation. GREAT VESSELS The aortic root is normal in size. The IVC is normal in size and collapses >50% with inspiration. PERICARDIUM Trace anterior pericardial effusion with no evidence of hemodynamic compromise. Other Information Study Quality: Adequate Conclusion Normal LV size and wall thickness. Overall systolic function is hyperdynamic. LVEF is 75%. RV is normal size and function. RVSP is estimated at 43 mmHG. The left atrium size is normal. MV is thickened with mild annular calcification and no stenosis. Trace mitral regurgitation. The tricuspid valve is normal in structure. Mild tricuspid regurgitation. The pulmonary valve is normal in structure. Trace pulmonic regurgitation. Trace anterior pericardial effusion with no evidence of hemodynamic compromise.
[2024-12-11 06:22] LABS: BASOPHILS % (AUTO) 0 % (0-1); EOSINOPHILS % (AUTO) 0 % (0-6); HEMOGLOBIN 10.4 g/dl (12.0-16.0); LYMPHOCYTES # (AUTO) 0.4 X10'3 (1.1-4.8); MEAN CORPUSCULAR HEMOGLOBIN 29.1 PG (27.0-31.0); MEAN CORPUSCULAR HGB CONC 33.6 g/dL (33.0-36.5); MEAN CORPUSCULAR VOLUME 86.7 FL (78-98); MEAN PLATELET VOLUME 7.9 FL (7.4-10.4); MONOCYTES # (AUTO) 0.4 X10'3 (0-0.9); MONOCYTES % (AUTO) 3.1 % (2-12); NEUTROPHILS # (AUTO) 11.6 X10'3 (1.8-7.7); NEUTROPHILS % (AUTO) 93.9 % (42-75); PLATELET COUNT 274 X10'3 (140-440); RED BLOOD COUNT 3.57 X10'6 (4.20-5.60); RED CELL DISTRIBUTION WIDTH 14.5 % (11.5-14.5); WHITE BLOOD COUNT 12.4 X10'3 (4.5-11.0)
[2024-12-11 06:23] LABS: ALANINE AMINOTRANSFERASE 15 U/L (12-78); ALBUMIN 2.5 G/DL (3.4-5.0); ALBUMIN/GLOBULIN RATIO 0.7 (1.1-1.5); ALKALINE PHOSPHATASE 66 IU/L (46-116); ANION GAP 5 (8-16); ASPARTATE AMINO TRANSFERASE 21 U/L (10-37); BILIRUBIN,TOTAL 0.2 MG/DL (0.1-1.0); BLOOD UREA NITROGEN 19 MG/DL (7-18); BUN/CREATININE RATIO 24.7 (10.0-20.0); CALCIUM 8.6 MG/DL (8.5-10.1); CHLORIDE 104 MMOL/L (99-107); CREATININE 0.77 MG/DL (0.40-0.90); GLUCOSE 152 MG/DL (70-104); POTASSIUM 3.7 MMOL/L (3.5-5.1); SODIUM 139 MMOL/L (135-145); TOTAL CARBON DIOXIDE 29.8 MMOL/L (24-32); TOTAL PROTEIN 6.1 G/DL (6.4-8.2); eCRCL 55 ML/MIN; eGFR 73 ML/MIN
[2024-12-11] MEDS ORDERED: IPRA3AMP31 NEB (10:18)
[2024-12-11] MEDS ORDERED: PANT40TA54 PO (10:18)
[2024-12-11] MEDS ORDERED: PRED10TA23 PO (10:18)
[2024-12-11] MEDS ORDERED: GUAI600T45 PO (10:18)
[2024-12-11] MEDS ORDERED: LEVO-65 PO (10:18)
--- NOTE | 2024-12-11 17:19 | DISCHARGE SUMMARY-Residence ---
Discharge Summary Providers to CC Resident Creating Document: [facility] ~ Discharge Summary Admission Diagnosis: COPD excerbation , left lung pneumonia Hospital Course DATE OF ADMISSION: 12/09/2024 DATE OF DISCHARGE: 12/11/2024 Echocardiogram on 12/10/2024: Normal LV size and wall thickness. Overall systolic function is hyperdynamic. LVEF is 75%. RV is normal size and function. RVSP is estimated at 43 mmHG. The left atrium size is normal. MV is thickened with mild annular calcification and no stenosis. Trace mitral regurgitation. The tricuspid valve is normal in structure. Mild tricuspid regurgitation. The pulmonary valve is normal in structure. Trace pulmonic regurgitation. Trace anterior pericardial effusion with no evidence of hemodynamic compromise. Chest/thoracic CTA on 12/09/2024: 1. No CTA evidence of an acute pulmonary embolism. Suspected consolidation of the periphery of the left lower lobe primarily along the subpleural space and/or superimposed atelectasis.COPD with tracheal 2. Secretions and severe centrilobular emphysema. Discharge Diagnosis\Comment: Left lower lobe pneumonia associated small pleural effusion; treated with broad- spectrum antibiotic therapy including Gram-positive and atypical organisms Acute on chronic COPD exacerbation: POA; likely secondary to the pneumonia, underlying history of severe COPD Chronic medical conditions of hypertension well-controlled Operations\Procedures: None Consultants: None Complications: None Condition on DC: Stable for transfer New Medications: Ipratropium/Albuterol Sulfate (Duoneb 2.5-0.5 Mg/3 Ml Soln) 0.5 Mg-3 Mg (2.5 Mg Base)/3 Ml Ampul.neb 1 VIAL NEB Q12H for 30 Days, #180 ML 0 Refills Levofloxacin (Levofloxacin) 500 Mg Tablet 1 TAB PO DAILY for 5 Days, #5 TAB Pantoprazole Sodium (Pantoprazole Sodium) 40 Mg Tablet.dr 1 TAB PO DAILY for 30 Days, #30 TAB 0 Refills Prednisone (Prednisone) 10 Mg Tablet 0 PO DAILY, #42 TAB Take 4 tabs daily x4 days, then 3 daily x4 days 2 daily x4 days 1 daily x4 days 1/2 daily x4 days then STOP Guaifenesin (Mucinex) 600 Mg Tablet.sa 600 MG PO Q12H, #20 TAB.SR Continued Medications: Albuterol Sulfate (Ventolin Hfa) 18 Gm Hfa.aer.ad 1 PUFF INH BID PRN for SOB or wheezing Aspirin (Aspir 81) 81 Mg Tablet. 1 TAB PO DAILY for 30 Days, #30 TAB Fluticasone/Umeclidin/Vilanter (Trelegy Ellipta 100-62.5-25) 1 Each Blst.w.dev 1 PUFF IH DAILY patient gets this med from [facility] due to cost Losartan Potassium (Losartan Potassium) 50 Mg Tablet 1 TAB PO DAILY Montelukast Sodium (Montelukast Sodium) 10 Mg Tablet 1 TAB PO QPM Discharge Summary: This is a 74-year-old female patient with a past medical history of hypertension, advanced COPD and allergies who presents to the hospital with complaints of increasing shortness of breath over the last 1-1/2 month associated with productive cough. The patient had tried outpatient antibiotic therapy twice with Zithromax and Augmentin for suspected acute bronchitis. She had improvement while she was taking antibiotic therapy but her symptoms soon returned. Due to her ongoing symptoms affecting quality of life, she further came into the ER for management. In the hospital, we performed a chest x-ray which revealed small left-sided pleural effusion with further confirmation findings on CTA chest which identified consolidation on the periphery of the left lower lobe along with the subpleural space involvement and superimposed atelectasis. She was maintained on 2 L of oxygen therapy and did not require higher concentrations. RT evaluated and treated the patient, incentive spirometry and flutter valve was done regularly every 1 hour for the atelectasis. In terms of IV antibiotic therapy, the patient was managed with IV Rocephin and Zithromax. Mucinex was ordered to release the expectoration. Duo nebs Q three scheduled and q.2h p.r.n. albuterol was continued. She was given 125 mcg of Solu-Medrol once in the ER followed by 60 mg b.i.d. The Solu-Medrol caused slight elevation in leukocytosis with the patient had remained hemodynamically stable without any fevers or increase in cough or shortness of breath. Hence, this was most secondary to the Solu-Medrol on itself. She had no further complications, both her pneumonia and her COPD exacerbation were managed appropriately. She was counseled every day vastly regarding the need to follow up with the general machinist as soon as she leaves the hospital due to her advanced COPD. Advised at discharge: Kindly follow-up with your general machinist in 1-2 weeks. Adjust your medications as per their recommendations. Maintain your oxygen stauration at home between 88-92%. Kindly also follow up with your PCP in 1-2 weeks and repeat a cbc, cmp, esr and CRP. We are prescribing some steroids to help with the COPD. ALso prescribing a duoneb nebulizations to reduced the degree of shortness of breath. Kidnly use all medications as indicated. If you notice your symptoms have failed to improve, or are worsening, kindly return to the nearest ER. Physical exam at discharge: General: Awake and Alert, no acute distress. Resp: Unlabored. Bilateral diminished breath sounds with fine crepitations, diminished further in the left basilar lobe when compared to the right. Heart: Regular Rate and rhythm, normal S1 and S2 without murmur, rub or gallop. Abdomen: Soft and non tender no organomegaly Extremities: No cyanosis,clubbing or edema. Skin: Warm and Dry. Labs at discharge: WBC 12.4, RBC 3.5, hemoglobin 10.4, platelet 274 Sodium 139, potassium 3.7, chloride 104, bicarb 29.8, BUN 19, creatinine 0.7, blood glucose 152 Medications at discharge: Mucinex 600 mg b.i.d., duo nebs, Levaquin 500 mg daily for five days, Protonix 40 mg daily, prednisone taper 10 mg, continue albuterol, aspirin, Trelegy Ellipta, losartan 50 mg daily and montelukast 10 mg HS *Problems/Diagnosis: (1) Acute and chronic respiratory failure Status: Acute (2) Pneumonia Status: Acute Total Time Spent on D/C: Up to 30 Minutes Date of Service: December 11, 2024 Billing Provider: CADE MERCEDES MD Common Visit Codes: 77182-FAH/OBS DISCH DAY >30min Problem Qualifiers (1) Pneumonia: Pneumonia type: due to unspecified organism Laterality: left Lung location: upper lobe of lung Qualified Codes: J18.9 - Pneumonia, unspecified organism [facility] December 11, 2024 17:17 CADE MERCEDES MD December 11, 2024 20:05
[2024-12-15] MEDS ORDERED: GUAI600T45 PO (00:52)
== END 2024-12-11 15:32 | disposition home health service (06) | DRG 189 ==
LOC: ER 11:20 → ED HOLD 17:01 → PCU 3S 12-10 15:45
PROVIDERS: ADMIT Internal Medicine; ATTEND Internal Medicine
PROC: B32T1ZZ Computerized Tomography (CT Scan) of Left Pulmonary Artery using Low Osmolar Contrast (ICD-10-PCS; principal; 2024-12-09)
PROC: B3201ZZ Computerized Tomography (CT Scan) of Thoracic Aorta using Low Osmolar Contrast (ICD-10-PCS; 2024-12-09)
PROC: B32S1ZZ Computerized Tomography (CT Scan) of Right Pulmonary Artery using Low Osmolar Contrast (ICD-10-PCS; 2024-12-09)
DX: J96.20 Acute and chronic respiratory failure, unspecified whether with hypoxia or hypercapnia (principal); J15.9 Unspecified bacterial pneumonia; J44.0 Chronic obstructive pulmonary disease with (acute) lower respiratory infection; J44.1 Chronic obstructive pulmonary disease with (acute) exacerbation; Z20.822 Contact with and (suspected) exposure to COVID-19; I10 Essential (primary) hypertension; Z79.82 Long term (current) use of aspirin; Z79.899 Other long term (current) drug therapy; Z99.81 Dependence on supplemental oxygen
CPT/HCPCS: 36415; 71046; 71275; 80048; 80053; 83605; 83880; 84484; 85025; 87040; 87081; 87811; 93005; 93306; 94640; 94664; 94668; 94760; 96365; 96372; 96375; 99285; G0378; J0456; J0696; J1644; J2270; J2919; Q9967

== ENCOUNTER 2025-04-21 14:05 | Outpatient (CLI) | payer MEDICARE, BC ==
[~2025-04-21] VITALS: Ht 162.6 cm; Wt 57.2 kg
[~2025-04-21 14:05] MED LIST changes: +IPRA3AMP31 NEB; +PANT40TA54 PO
[2025-04-21] MEDS: albuterol 2.5 MG/3 ML nebule NEB ONE (15:04)
[2025-04-21 15:09] VITALS: PULSE 94; RESP 15; O2SAT 95
[2025-04-21 15:22] VITALS: PULSE 92; RESP 16
--- NOTE | 2025-04-23 15:48 | PROCEDURE NOTE - Respiratory ---
Procedure Note-Respiratory Providers to CC Copies To 1: KENNETH JULIAN MD; HECTOR CHING MD Procedure Name: This is a complete pulmonary function study dated April 21, 2025. Spirometry measurements: There is substantial reduction in both the forced vital capacity and the FEV1. The FEV1 ratio is reduced as well. All of the measured flow rates show significant reduction. After bronchodilator administration there is no appreciable change in the flow volume curve. Spirometry documents severe obstructive ventilatory defect. Lung volume measurements: The total lung capacity is elevated. The functional residual capacity and the residual volume measurements are also elevated. This indicates hyperinflation with air trapping within the lungs. These are common findings in advanced obstructive lung disease. Lung diffusion measurement: The DLCO is significantly reduced. We can see that the KVO measurement is reduced as well as the alveolar volume measurement. Airway resistance measurement: The airway resistance is elevated. This again suggests significant obstructive airway disease. Conclusion : This study is severely abnormal. There is evidence for severe obstructive ventilatory defect. The patient shows hyperinflation with air trapping within the lungs. These findings together with a very low DLCO measurements strongly indicates the presence of emphysema. Even though this patient did not show much change following bronchodilator administration during the test, it is still recommended that the patient be treated long-term with inhaled bronchodilator. We have no previous studies for comparison. Close pulmonary follow-up is recommended. GIRISH CONDON MD Apr 23, 2025 15:48
== END 2025-04-21 23:59 | disposition home or self-care (01) ==
LOC: RT 14:05
PROVIDERS: ATTEND Internal Medicine
DX: J40 Bronchitis, not specified as acute or chronic (principal); J44.9 Chronic obstructive pulmonary disease, unspecified; R06.02 Shortness of breath; J98.4 Other disorders of lung; Z87.891 Personal history of nicotine dependence; Z79.51 Long term (current) use of inhaled steroids
CPT/HCPCS: 94060; 94727; 94729; 94760; A6402; A6449